=== PATIENT | female | born 1985 | race Caucasian/White ===

== ENCOUNTER → 2022-01-05 07:58 | Outpatient (CLI) | payer OTHER, SELFPAY ==
--- NOTE | ~2022-01-05 | US_ITS ---
EXAMINATION: US pelvic complete w TV DATE: 01/05/2022 08:27 INDICATION: Pelvic pain and fullness. Comparison:No prior studies for comparison. TECHNIQUE: Multiple transabdominal and endovaginal sonographic images of the pelvis performed. FINDINGS: The uterus measures 6.8 x 2.2 x 3.9 cm. The endometrial complex measures 3 mm. There is tra ce fluid in the endometrium. The right ovary measures 3.2 x 2.2 x 2.3 cm and the left ovary measures 2.5 x 1.6 x 1.7 cm. There is a 1.4 cm right ovarian cyst. There are small follicles in each ovary. Normal doppler signal in both o varies. There is no free fluid in the pelvis. There are no abnormal masses seen on either side. IMPRESSION: 1. Right ovarian cyst measuring 1.4 cm. Reviewed, dictated and finalized at location B.
== END ==
PROVIDERS: PCP Nurse Practitioner; Visit Provider Nurse Practitioner
DX: R10.2 Pelvic and perineal pain (principal); N83.201 Unspecified ovarian cyst, right side
CPT/HCPCS: 76830; 76856